=== PATIENT | male | born 1965 | race Caucasian/White ===

== ENCOUNTER 2016-12-16 07:59 | Day surgery (SDC) | payer OTHER ==
[~2016-12-16] VITALS: Ht 172.7 cm; Wt 81.7 kg
[~2016-12-16 07:59] MED LIST: IPRA30SP8 NS; LISI-567 PO
[2016-12-16] MEDS ORDERED: 0.9% Sodium Chloride 1,000 ML IV PRN (08:13)
[2016-12-16] MEDS ORDERED: Sodium Chloride LOK Flush 10 mL Syringe IV PRN (08:15)
[2016-12-16] MEDS ORDERED: fentaNYL-PF 50 mCg/mL 2 mL Inj IVPUSH PRN (08:15)
[2016-12-16 08:37] VITALS: BP 127/91; PULSE 89; O2SAT 97
[2016-12-16] MEDS ORDERED: 0.9% Sodium Chloride 1,000 ML ONE (08:40)
[2016-12-16 09:25] VITALS: BP 128/85; PULSE 79; RESP 14; O2SAT 92
[2016-12-16 09:35] VITALS: BP 123/80; PULSE 89; RESP 16; O2SAT 96
--- NOTE | 2016-12-16 09:35 | ENDO ---
[address] [address] ENDOSCOPY PROCEDURE PATIENT: KARAN MCDONOUGH : 1965 MR#: [id number] ADMIT: 12/16/2016 JOB ID: [id number] DATE: 12/16/2016 PROCEDURE: Colonoscopy. INDICATIONS: Screening. ASA CLASSIFICATION: I MALLAMPATI SCORE: 1 MEDICATIONS: Versed at 7 mg, fentanyl 125 mcg. INSTRUMENT USED: PCF-H180AL. PREP QUALITY: Good. PROCEDURE DETAILS: After informed consent was obtained, the patient was brought to the GI suite, where he was placed on oxygen via nasal cannula and monitored with continuous pulse oximeter, telemetry, and blood pressure monitoring. A time-out was performed. Then, he was placed in a left lateral decubitus position and medications were administered for sedation. Digital rectal exam with palpation of the prostate was performed which was unremarkable. The colonoscope was then inserted into the rectum and advanced under direct visualization to the cecum, which was identified by the presence of the ileocecal valve and appendiceal orifice. Once the cecum was reached, the colonoscope was withdrawn back into the rectum as the mucosa and lumen were examined. In the rectum, retroflexion was performed. Following retroflexion, remaining air in the rectum was suctioned, and procedure was completed. FINDINGS: 1. Scattered diverticula were seen throughout the sigmoid colon. 2. Otherwise normal exam from rectum to cecum. IMPRESSION: Sigmoid diverticulosis. RECOMMENDATIONS: 1. Fiber-rich diet. 2. Repeat colonoscopy in 10 years, sooner if symptoms should dictate. COMPLICATIONS: None. ESTIMATED BLOOD LOSS: Zero.
[2016-12-16 09:47] VITALS: BP 124/86; PULSE 76; RESP 14; O2SAT 95
== END 2016-12-16 23:59 | disposition home or self-care (01) ==
LOC: END 07:59
PROVIDERS: ATTEND Internal Medicine Gastroenterology
DX: Z12.11 Encounter for screening for malignant neoplasm of colon (principal); K57.30 Diverticulosis of large intestine without perforation or abscess without bleeding; I10 Essential (primary) hypertension; Z79.899 Other long term (current) drug therapy
CPT/HCPCS: G0121; G0500; J2250; J7030